=== PATIENT | female | born 1955 | race American Indian/Alaskan Native ===

== ENCOUNTER 2019-01-21 08:08 | Emergency (ER) | payer MEDICARE ==
[2019-01-21 08:59] LABS: Basophils # (Auto) 0.1 K/mm3 (0.0-0.1); Basophils % (Auto) 1.2 % (0.0-1.8); Eosinophils # (Auto) 0.4 K/mm3 (0.0-0.4); Eosinophils % (Auto) 5.5 % (0.0-4.3); Hematocrit 41.8 % (30.3-42.9); Hemoglobin 13.6 gm/dl (10.1-14.3); Lymphocytes # (Auto) 2.3 K/mm3 (1.2-5.4); Lymphocytes % (Auto) 30.9 % (13.4-35.0); Mean Corpuscular HGB Conc 33 % (30-34); Mean Corpuscular Volume 87 fl (79-97); Monocytes # (Auto) 0.8 K/mm3 (0.0-0.8); Monocytes % (Auto) 10.5 % (0.0-7.3); Platelet Count 252 K/mm3 (140-440); Red Cell Distribution Width 13.7 % (13.2-15.2)
[2019-01-21] MEDS ORDERED: ZOFRAN IV ONE (09:11)
--- NOTE | 2019-01-21 09:15 | Emergency Department Report ---
ED Abdominal Pain HPI - General Chief Complaint: Chest Pain Stated Complaint: CHEST PAIN/ABD PAIN/N/V Time Seen by Provider: 01/21/19 09:06 Source: patient Mode of arrival: Ambulatory Limitations: No Limitations - History of Present Illness Initial Comments: Patient is 64-year-old female with no significant past medical history. Patient presented to the ER complaining of epigastric abdominal pain for the last 3 days. Patient describes her pain as sharp and associated with nausea and vomiting. Patient denied any chest pain. Patient stated that radiation of the pain is down to the suprapubic area. Patient denied any shortness of breath. Patient stated that she took some laxative [id number] in now she's having diarrhea. Patient denied any fever or chills. MD Complaint: abdominal pain -: days(s) Location: epigastric Radiation: suprapubic Migration to: no migration Severity scale (0 -10): 8 Quality: sharp Consistency: intermittent - Related Data Previous Rx's Medication Instructions Recorded Last Taken Type Ibuprofen [Motrin] 600 mg PO Q8H PRN #20 tablet 07/05/18 Unknown Rx traMADol [Ultram] 50 mg PO Q6HR PRN #12 tablet 07/05/18 Unknown Rx Allergies Allergy/AdvReac Type Severity Reaction Status Date / Time Penicillins Allergy Unknown Verified 01/21/19 08:14 ED Review of Systems ROS: Stated complaint: CHEST PAIN/ABD PAIN/N/V Other details as noted in HPI Comment: All other systems reviewed and negative Constitutional: denies: chills, fever Respiratory: denies: cough, orthopnea, shortness of breath, SOB with exertion, SOB at rest, wheezing Cardiovascular: denies: chest pain, palpitations, dyspnea on exertion Gastrointestinal: abdominal pain, nausea, vomiting, diarrhea. denies: constipation, hematemesis, melena, hematochezia Neurological: denies: headache, weakness, numbness, paresthesias, confusion, abnormal gait ED Past Medical Hx - Past Medical History Previous Medical History?: No - Surgical History Past Surgical History?: No - Social History Smoking Status: Never Smoker Substance Use Type: None - Medications Home Medications: Home Medications Medication Instructions Recorded Confirmed Last Taken Type Ibuprofen [Motrin] 600 mg PO Q8H PRN #20 tablet 07/05/18 Unknown Rx traMADol [Ultram] 50 mg PO Q6HR PRN #12 tablet 07/05/18 Unknown Rx ED Physical Exam - General Limitations: No Limitations General appearance: alert, in no apparent distress - Head Head exam: Present: atraumatic, normocephalic, normal inspection - Eye Eye exam: Present: normal appearance, PERRL - ENT ENT exam: Present: normal exam, normal orophraynx, mucous membranes moist - Neck Neck exam: Present: normal inspection, full ROM. Absent: tenderness, meningismus, lymphadenopathy, thyromegaly - Respiratory Respiratory exam: Present: normal lung sounds bilaterally - Cardiovascular Cardiovascular Exam: Present: regular rate, normal rhythm, normal heart sounds - GI/Abdominal GI/Abdominal exam: Present: soft, tenderness (epigastric and suprapubic tenderness), normal bowel sounds. Absent: distended, guarding, rebound, rigid, organomegaly, mass, bruit, pulsatile mass, hernia - Extremities Exam Extremities exam: Present: normal inspection, full ROM, normal capillary refill. Absent: pedal edema, calf tenderness - Back Exam Back exam: Present: normal inspection, full ROM. Absent: tenderness, CVA tenderness (R), CVA tenderness (L), muscle spasm, paraspinal tenderness, vertebral tenderness - Neurological Exam Neurological exam: Present: alert, oriented X3, CN II-XII intact, normal gait, reflexes normal - Skin Skin exam: Present: warm, intact, normal color ED Course Vital Signs 01/21/19 01/21/19 01/21/19 08:22 09:28 09:30 Temperature 98.9 F Pulse Rate 71 73 69 Respiratory 18 14 Rate Blood Pressure 120/69 Blood Pressure 146/74 [Right] O2 Sat by Pulse 97 Oximetry 01/21/19 01/21/19 01/21/19 09:33 10:01 10:31 Temperature Pulse Rate 68 77 Respiratory 18 13 20 Rate Blood Pressure 120/69 104/55 Blood Pressure [Right] O2 Sat by Pulse 100 96 Oximetry 01/21/19 01/21/19 11:01 11:31 Temperature Pulse Rate 68 67 Respiratory 16 12 Rate Blood Pressure 104/55 109/52 Blood Pressure [Right] O2 Sat by Pulse 97 96 Oximetry ED Medical Decision Making - Lab Data Result diagrams: 01/21/19 08:23 01/21/19 08:23 - Radiology Data Radiology results: report reviewed Referring Physician: ROBIN KUMAR Patient Name: CIERA GAYLE Date of : 1955 Sex: Female Report Date: 2019-01-21 Report Status: Finalized Findings [facility] [address] [place] [address] Cat Scan Report Signed Patient: CIERA GAYLE MR#: [id number] : 1955 Acct:[id number] Age/Sex: 64 / F ADM Date: 01/21/19 Loc: ED Attending Dr: Ordering Physician: ROBIN KUMAR Date of Service: 01/21/19 Procedure(s): CT abdomen pelvis w con Accession Number(s): [id number] cc: ROBIN KUMAR FINAL REPORT EXAM: CT ABDOMEN PELVIS W CON HISTORY: abdominal pain TECHNIQUE: CT of the abdomen and pelvis with IV contrast. Coronal and sagittal reconstructed imaging provided. PRIORS: None currently available. FINDINGS: ABDOMEN: Liver: Heterogeneous decreased attenuation. No suspicious enhancement or lesions. Gallbladder: Mildly distended. Wall is within normal limits. Layering stones. Common bile duct does not appear prominent by CT. Kidneys: Subcentimeter hypodensities in both kidneys statistically likely represent cysts but are too small to accurately characterize. Symmetrical cortical enhancement. No hydronephrosis. Stomach, spleen, pancreas, and adrenals are unremarkable. IVC is unremarkable. No abdominal aortic aneurysm or dissection. No periaortic or retroperitoneal mass or adenopathy. Diverticulosis. Fluid stool in the rectum. Collapsed left colon limits evaluation for wall thickening. Air-fluid levels and fluid stool in the transverse colon. Mild solid stool in the right colon. No wall thickening. No stranding. Terminal ileum is unremarkable. Appendix is not clearly identified. No pericecal inflammatory changes. Small bowel loops are unremarkable. No obstruction. No air-fluid levels. Mesentery is unremarkable. No free air. No free fluid. Fat containing umbilical hernia. No strangulation. PELVIS: Oval low-attenuation lesion in the left pelvis on series 2:144 measures 1.2 cm. Lobulated heterogeneous prominent uterus may represent fibroids. Masses are not excluded. Dystrophic calcifications also identified. Bladder: Unremarkable. No wall thickening. No stones. No pelvic mass or adenopathy. Inguinal regions: Bilateral prominent inguinal lymph nodes. One of the larger lymph nodes on the right measures 9.8 mm in short axis diameter. One of the larger lymph nodes on the right measures 10 mm. No mass. Bladder is unremarkable. There is no pelvic mass or adenopathy. Inguinal regions are unremarkable. Bones: No suspicious osseous lesions on this limited examination of the skeleton. Metastatic disease better evaluated with bone scan. Degenerative changes are in the spine. IMPRESSION: Suspect fatty liver. Gallstones. No CT evidence for cholecystitis. Probable bilateral subcentimeter renal cysts. Large bowel findings are nonspecific and may represent mild colitis, enterocolitis, or diarrhea. No obvious wall thickening or stranding. No obstruction. No perforation. Suspect fibroid uterus. Probable left ovary with ovarian cyst. Enlarged bilateral inguinal lymph nodes are nonspecific. Differential diagnosis includes reactive and pathologic. Transcribed By: TYM Dictated By: LEONARDA ATWOOD MD Electronically Authenticated By: LEONARDA ATWOOD MD Signed Date/Time: 01/21/19 1258 DD/ 1257 TD/TT: 01/21/19 1257 - Medical Decision Making Patient is 64-year-old female with no significant past medical history. Patient presented to the ER complaining of epigastric abdominal pain for the last 3 days. Patient describes her pain as sharp and associated with nausea and vomiting. Patient denied any chest pain. Patient stated that radiation of the pain is down to the suprapubic area. Patient denied any shortness of breath. Patient stated that she took some laxative [id number] in now she's having diarrhea. Patient denied any fever or chills. Patient stated that she is feeling much better. Patient denied any nausea or vomiting. CT abdomen and pelvis reviewed and resolved informed to the patient. I advised the patient to follow-up with her primary care physician in the next 2-3 days and to return to the ER if her symptoms are not improved. Critical care attestation.: If time is entered above; I have spent that time in minutes in the direct care of this critically ill patient, excluding procedure time. ED Disposition Clinical Impression: Abdominal pain, Colitis Disposition: DC-01 TO HOME OR SELFCARE Is pt being admited?: No Condition: Stable Instructions: Abdominal Pain (ED), Infectious Colitis (ED) Referrals: OTTO LOJA MD [Primary Care Provider] - 3-5 Days
[2019-01-21 10:33] LABS: BUN/Creatinine Ratio 17; Blood Urea Nitrogen 10 mg/dL (7-17)
[2019-01-21 10:34] LABS: Calcium 10.2 mg/dL (8.4-10.2); Hemolysis Index 17
[2019-01-21 10:44] LABS: Alanine Aminotransferase 13 units/L (7-56); Albumin 3.9 g/dL (3.9-5)
[2019-01-21 10:58] LABS: Bilirubin,Direct < 0.2 mg/dL (0-0.2)
[2019-01-21 11:27] LABS: Bacteria,Urine 2+ /HPF (Negative); Bilirubin,Urine NEG (Negative); Blood,Urine MOD (Negative); Color,Urine Yellow (Yellow); Mucus,Urine 1+ /HPF; Protein,Urine <15 mg/dL mg/dL (Negative); Urobilinogen,Urine < 2.0 mg/dL (<2.0)
[2019-01-21 12:01] VITALS: BP 109/52
--- NOTE | 2019-01-21 12:58 | Cat Scan Report ---
FINAL REPORT EXAM: CT ABDOMEN PELVIS W CON HISTORY: abdominal pain TECHNIQUE: CT of the abdomen and pelvis with IV contrast. Coronal and sagittal reconstructed imaging provided. PRIORS: None currently available. FINDINGS: ABDOMEN: Liver: Heterogeneous decreased attenuation. No suspicious enhancement or lesions. Gallbladder: Mildly distended. Wall is within normal limits. Layering stones. Common bile duct does n ot appear prominent by CT. Kidneys: Subcentimeter hypodensities in both kidneys statistically likely represent cysts but are too small to accurately characterize. Symmetrical cortical enhancement. No hydronephrosis. Stomach, spleen, pancreas, and adrenals are unremarkable. IVC is unremarkable. No abdominal aortic aneurysm or dissection. No periaortic or retroperitoneal mass or adenopathy. Diverticulosis. Fluid stool in the rectum. Collapsed left colon limits evaluation for wall thickening . Air-fluid levels and fluid stool in the transverse colon. Mild solid stool in the right colon. No w all thickening. No stranding. Terminal ileum is unremarkable. Appendix is not clearly identified. No pericecal inflammatory changes. Small bowel loops are unremarkable. No obstruction. No air-fluid levels. Mesentery is unremarkable. No free air. No free fluid. Fat containing umbilical hernia. No strangulation. PELVIS: Oval low-attenuation lesion in the left pelvis on series 2:144 measures 1.2 cm. Lobulated heterogeneous prominent uterus may represent fibroids. Masses are not excluded. Dystrophic calcifications also identified. Bladder: Unremarkable. No wall thickening. No stones. No pelvic mass or adenopathy. Inguinal regions: Bilateral prominent inguinal lymph nodes. One of the larger lymph nodes on the righ t measures 9.8 mm in short axis diameter. One of the larger lymph nodes on the right measures 10 mm. No mass. Bladder is unremarkable. There is no pelvic mass or adenopathy. Inguinal regions are unremarkable. Bones: No suspicious osseous lesions on this limited examination of the skeleton. Metastatic disease better evaluated with bone scan. Degenerative changes are in the spine. IMPRESSION: Suspect fatty liver. Gallstones. No CT evidence for cholecystitis. Probable bilateral subcentimeter renal cysts. Large bowel findings are nonspecific and may represent mild colitis, enterocolitis, or diarrhea. No o bvious wall thickening or stranding. No obstruction. No perforation. Suspect fibroid uterus. Probable left ovary with ovarian cyst. Enlarged bilateral inguinal lymph nodes are nonspecific. Differential diagnosis includes reactive and pathologic.
== END 2019-01-21 13:41 | disposition home or self-care (01) ==
LOC: ED 08:08
DX: K52.9 Noninfective gastroenteritis and colitis, unspecified (principal); Z88.0 Allergy status to penicillin
CPT/HCPCS: 36415; 74177; 80048; 80076; 81001; 83690; 84484; 85025; 93005; 93010; 96374; 99284; J2405; Q9967

== ENCOUNTER 2022-05-26 13:06 | Emergency (ER) | payer MEDICARE ==
--- NOTE | 2022-05-26 19:14 | Emergency Department Report ---
ED ENT HPI - General Chief complaint: Earache Stated complaint: PAIN IN LEFT EAR Source: patient Mode of arrival: Ambulatory Limitations: No Limitations - History of Present Illness Initial comments: 67-year-old female no significant past medical history reports to the ER with complaints of bilateral ear ache and itching with left ear greater than right ear. Denies any hearing loss. Patient reports scratching at her ear due to the itching and after scratching reports the next day having increased and tenderness to left ear. Patient reports pain is 8 out of 10. No other acute symptoms reported. - Related Data Previous Rx's Medication Instructions Recorded Last Taken Type Ibuprofen [Motrin] 600 mg PO Q8H PRN #20 tablet 07/05/18 Unknown Rx traMADoL [Ultram] 50 mg PO Q6HR PRN #12 tablet 07/05/18 Unknown Rx Ciprofloxacin HCl [Ciprofloxacin 500 mg PO Q12H #14 tab 01/21/19 Unknown Rx TAB] Ondansetron [Zofran Odt] 4 mg PO Q8HR PRN #14 tab.rapdis 01/21/19 Unknown Rx metroNIDAZOLE [Flagyl] 500 mg PO Q12HR #14 tab 01/21/19 Unknown Rx traMADoL [Ultram 50 MG tab] 50 mg PO Q4HR PRN #14 tablet 01/21/19 Unknown Rx Ciprofloxacin HCl/Dexameth 4 drop AU BID 7 Days #1 bottle 05/26/22 Unknown Rx [Ciproflox-Dexameth Otic Susp] Allergies Allergy/AdvReac Type Severity Reaction Status Date / Time Penicillins Allergy Intermediate Unknown Verified 05/26/22 13:21 ED Dental HPI - General Chief complaint: Earache Stated complaint: PAIN IN LEFT EAR Source: patient Mode of arrival: Ambulatory Limitations: No Limitations - Related Data Previous Rx's Medication Instructions Recorded Last Taken Type Ibuprofen [Motrin] 600 mg PO Q8H PRN #20 tablet 07/05/18 Unknown Rx traMADoL [Ultram] 50 mg PO Q6HR PRN #12 tablet 07/05/18 Unknown Rx Ciprofloxacin HCl [Ciprofloxacin 500 mg PO Q12H #14 tab 01/21/19 Unknown Rx TAB] Ondansetron [Zofran Odt] 4 mg PO Q8HR PRN #14 tab.rapdis 01/21/19 Unknown Rx metroNIDAZOLE [Flagyl] 500 mg PO Q12HR #14 tab 01/21/19 Unknown Rx traMADoL [Ultram 50 MG tab] 50 mg PO Q4HR PRN #14 tablet 01/21/19 Unknown Rx Ciprofloxacin HCl/Dexameth 4 drop AU BID 7 Days #1 bottle 05/26/22 Unknown Rx [Ciproflox-Dexameth Otic Susp] Allergies Allergy/AdvReac Type Severity Reaction Status Date / Time Penicillins Allergy Intermediate Unknown Verified 05/26/22 13:21 ED Review of Systems ROS: Stated complaint: PAIN IN LEFT EAR Other details as noted in HPI Constitutional: denies: chills, fever Eyes: denies: eye pain, eye discharge, vision change ENT: ear pain. denies: throat pain, hearing loss Respiratory: denies: cough, shortness of breath, wheezing Cardiovascular: denies: chest pain, palpitations Endocrine: no symptoms reported Gastrointestinal: denies: abdominal pain, nausea, diarrhea Genitourinary: denies: urgency, dysuria, discharge Musculoskeletal: denies: back pain, joint swelling, arthralgia Skin: denies: rash, lesions Neurological: denies: headache, weakness, paresthesias Psychiatric: denies: anxiety, depression Hematological/Lymphatic: denies: easy bleeding, easy bruising ED Past Medical Hx - Past Medical History Previous Medical History?: No - Social History Smoking Status: Never Smoker Substance Use Type: None - Medications Home Medications: Home Medications Medication Instructions Recorded Confirmed Last Taken Type Ibuprofen [Motrin] 600 mg PO Q8H PRN #20 tablet 07/05/18 Unknown Rx traMADoL [Ultram] 50 mg PO Q6HR PRN #12 tablet 07/05/18 Unknown Rx Ciprofloxacin HCl [Ciprofloxacin 500 mg PO Q12H #14 tab 01/21/19 Unknown Rx TAB] Ondansetron [Zofran Odt] 4 mg PO Q8HR PRN #14 tab.rapdis 01/21/19 Unknown Rx metroNIDAZOLE [Flagyl] 500 mg PO Q12HR #14 tab 01/21/19 Unknown Rx traMADoL [Ultram 50 MG tab] 50 mg PO Q4HR PRN #14 tablet 01/21/19 Unknown Rx Ciprofloxacin HCl/Dexameth 4 drop AU BID 7 Days #1 bottle 05/26/22 Unknown Rx [Ciproflox-Dexameth Otic Susp] ED Physical Exam - General Limitations: No Limitations General appearance: alert, in no apparent distress - Head Head exam: Present: atraumatic, normocephalic - Eye Eye exam: Present: normal appearance - ENT ENT exam: Present: mucous membranes moist - Expanded ENT Exam Expanded Ear exam: Present: other (Tenderness noted on external ear of right and left. No external swelling noted. TM is intact bilaterally. Ear canal has slight swelling with tenderness to the left) TM/Canal exam: Canal Tenderness: Left TM, Right TM - Neck Neck exam: Present: normal inspection - Respiratory Respiratory exam: Present: normal lung sounds bilaterally. Absent: respiratory distress - Cardiovascular Cardiovascular Exam: Present: regular rate, normal rhythm. Absent: systolic murmur, diastolic murmur, rubs, gallop - GI/Abdominal GI/Abdominal exam: Present: soft, normal bowel sounds - Extremities Exam Extremities exam: Present: normal inspection - Back Exam Back exam: Present: normal inspection - Neurological Exam Neurological exam: Present: alert, oriented X3 - Psychiatric Psychiatric exam: Present: normal affect, normal mood - Skin Skin exam: Present: warm, dry, intact, normal color. Absent: rash ED Course Vital Signs 05/26/22 05/26/22 13:19 20:26 Temperature 98.1 F Pulse Rate 64 68 Respiratory 18 16 Rate Blood Pressure 142/83 127/82 [Right] O2 Sat by Pulse 98 100 Oximetry ED Medical Decision Making - Medical Decision Making 67-year-old female no significant past medical history reports to the ER with complaints of bilateral ear ache and itching with left ear greater than right ear. Denies any hearing loss. Patient reports scratching at her ear due to the itching and after scratching reports the next day having increased and tenderness to left ear. Patient reports pain is 8 out of 10. No other acute symptoms reported. Tympanic membranes are intact bilaterally, tenderness is noted externally to the ear, with swelling slightly noted in the ear canal. No hearing loss noted Patient to be started on Ciprodex 4 drops in each ear twice a day for 7 days. Patient received pain medicine while here in the ER. Patient agrees with plan of care stable for discharge and verbalizes understanding. Patient will follow her primary care provider this upcoming week. Patient informed if symptoms get worse to report back to the ER. Vital Signs 05/26/22 05/26/22 13:19 20:26 Temperature 98.1 F Pulse Rate 64 68 Respiratory 18 16 Rate Blood Pressure 142/83 127/82 [Right] O2 Sat by Pulse 98 100 Oximetry Critical care attestation.: If time is entered above; I have spent that time in minutes in the direct care of this critically ill patient, excluding procedure time. ED Disposition Clinical Impression: Bilateral otitis externa Qualifiers: Otitis externa type: other infective Chronicity: acute Qualified Code(s): H60.393 - Other infective otitis externa, bilateral Disposition: 01 HOME / SELF CARE / HOMELESS Is pt being admited?: No Does the pt Need Aspirin: No Condition: Stable Instructions: Ear Drops, Adult, [id number], Otitis Externa Prescriptions: Ciprofloxacin HCl/Dexameth [Ciproflox-Dexameth Otic Susp] 4 drop AU BID 7 Days #1 bottle Time of Disposition: 19:41 Print Language: BELARUSIAN
[2022-05-26] MEDS ORDERED: HYDROcodone/ACETAMINOPHEN 5-325 MG TAB PO ONE (19:34)
[2022-05-26 20:27] VITALS: BP 127/82
== END 2022-05-26 21:08 | disposition home or self-care (01) ==
LOC: ED 13:06
DX: H60.93 Unspecified otitis externa, bilateral (principal); Z88.0 Allergy status to penicillin
CPT/HCPCS: 99282